=== PATIENT | male | born 1955 | race Caucasian/White ===

== ENCOUNTER 2016-09-03 04:30 | Inpatient (IN) | payer MEDICAID ==
[~2016-09-03] VITALS: Ht 172.7 cm; Wt 81.6 kg
[~2016-09-03 04:30] MED LIST: LIPITOR20 MG PO; LISINOPRIL10 M1 PO; NITROSTAT0.4 M1 PO; ZOCOR5 MG PO
--- NOTE | 2016-09-03 04:30 | NUR ---
61 [place] [address] [place]. Brought in by ambulance tO ED WITH c/o chest pain . PT STATES had chest pain since yesterday AM . DENIES N/V/D; SKIN IS Pale /cold/wet; AAOX4 WITH EVEN AND STEADY GAIT; LUNGS CLEAR BL; HR EVEN AND REGULAR; PT DENIES ANY fever,SOB, OR COUGH AT THIS TIME; PATIENT STATES PAIN OF 10/10 AT THIS TIME; VSS; PATIENT POSITIONED FOR COMFORT; HOB ELEVATED; BEDRAILS UP X2; BED DOWN. ER MD MADE AWARE OF PT STATUS.
--- NOTE | 2016-09-03 04:30 | NUR ---
0419- PT TORSTEN ALS. TAKEN TO BED 8
[2016-09-03 04:36] VITALS: BP 127/77
[2016-09-03] MEDS ORDERED: NACL 0.9% 1,000 ML IV ONE (05:15)
--- NOTE | 2016-09-03 05:33 | NUR ---
Dr. Gramajo evaluating patient at bedside.
[2016-09-03] MEDS ORDERED: NITROGLYCERIN 2% 1 GM PKT TP ONE (05:40)
[2016-09-03] MEDS ORDERED: MORPHINE SULFATE 4 MG/ML SYR IVP ONE (05:40)
--- NOTE | 2016-09-03 06:19 | NUR ---
Patient will be admitted to care of DR. CEBALLOS . Admited to TELEMETRY. Will go tO room 122. Belongings list completed. Report to AMY LOWE.
--- NOTE | 2016-09-03 06:30 | NUR ---
RECEIVED PT FROM ER PER MONSE WITH CC OF CHEST PAIN, AMBULATED TO BED WITH MINIMAL ASSIST, TOOK OFF SOAKED JEANS, SOCKS AND SHOES, PROVIDED WITH URINAL AND VOIDED FREELY, PUT ON TELEMETRY, MRSA NARES DONE, INITIAL VITAL SIGNS TAKEN, CALL LIGHT WITHIN REACH.
[2016-09-03] MEDS ORDERED: ONDANSETRON 4 MG/2 ML VIAL IVP PRN (06:40)
[2016-09-03] MEDS ORDERED: HYDROcodone/APAP 5/325 MG 1 TAB TAB PO PRN (06:40)
[2016-09-03] MEDS ORDERED: LORazepam 2 MG/ML VIAL IVP PRN (06:40)
[2016-09-03 07:00] VITALS: BP 121/79
--- NOTE | 2016-09-03 07:05 | NUR ---
PT SLEEPING, NO SIGNS OF DISTRESS, REPORT GIVEN TO SANJAY REYES FOR CONTINUITY OF CARE.
[2016-09-03] MEDS ORDERED: PNEUMOCOCCAL VACCINE 23 MCG/0.5 ML VIAL IMVAC SCH (09:40)
--- NOTE | 2016-09-03 09:56 | NUR ---
Jadon ELDRIDGE IS HERE TO SEE PATIENT.
--- NOTE | 2016-09-03 10:03 | NUR ---
PATIENT HAS BEEN SCREENED AND CATEGORIZED MODERATE NUTRITION RISK. PATIENT WILL BE SEEN WITHIN 3-5 DAYS OF ADMISSION. 09/05/16-09/07/[address]
[2016-09-03] MEDS ORDERED: ENOXAPARIN 80 MG/0.8 ML SYR SUBQ SCH ×2 (10:26→21:00)
--- NOTE | 2016-09-03 10:28 | NUR ---
PATIENT COMPLAINING OF NAUSEA. ZOFRAN IVP GIVEN WITH TEACHING. PATIENT TOLERATED WELL AND VERBALIZED UNDERSTANDING. NO SIGN OF DISTRESS NOTED AT THIS TIME. ALL NEEDS ARE MET. CALL LIGHT WITHIN REACH. WILL CONTINUE TO MONITOR.
--- NOTE | 2016-09-03 10:34 | NUR ---
DR CEBALLOS. Y AWARE OF PATIENT HAS BEEN SINUS TACHY OF 130-135.
[2016-09-03] MEDS: NACL 0.9% 1,000 ML IV SCH ×2 (10:42→20:28)
[2016-09-03 12:00] VITALS: BP 129/69
[2016-09-03] MEDS: MORPHINE SULFATE 2 MG/ML SYR IVP PRN ×2 (12:11→23:10)
--- NOTE | 2016-09-03 12:16 | NUR ---
PATIENT REQUESTED MEDICATION FOR BLE PAIN ACHING AND PRESSURE PAIN 10/10. MORPHINE IVP GIVEN. PATIENT TOLERATED WELL. NO SIGN OF DISTRESS NOTED. ALL NEEDS ARE MET. CALL LIGHT WITHIN REACH. WILL CONTINUE TO MONITOR.
[2016-09-03] MEDS: ACETAMINOPHEN 325 MG TAB PO PRN (12:29)
--- NOTE | 2016-09-03 14:35 | NUR ---
CALLED AND SPOKE WITH Jadon ELDRIDGE REGARDING PATIENT'S CRITICAL LAB VALUE TROPONIN [phone]. STATED TO CONTINUE TO MONITOR PATIENT. TELEPHONE ORDER FOR TROPONIN IN AM 09/04/16, AND PATIENT TO BE TRANSFERRED TO [facility] FOR ANGIOGRAM.
[2016-09-03] MEDS: NITROGLYCERIN 0.4 MG TAB SL PRN ×5 (15:04→19:42)
--- NOTE | 2016-09-03 15:05 | NUR ---
PATIENT REPORTED HAVING PRESSURE CHEST PAIN 04/18. NITROSTAT PO GIVEN. O2 3L VIA NASAL CANNULA GIVEN. HEAD OF BED ELEVATED. VS OBTAINED. PATIENT STILL HAVING MILD FEVER AT 100.2. COOLING MEASURE STILL IN PLACE.
[2016-09-03 15:06] VITALS: BP 135/85
--- NOTE | 2016-09-03 15:56 | NUR ---
NITROSTAT PO GIVEN FOR CHEST PAIN. HEAD OF BED ELEVATED. O2 3L VIA NASAL CANNULA GIVEN. WILL CONTINUE TO MONITOR.
[2016-09-03 16:00] VITALS: BP 143/87
--- NOTE | 2016-09-03 16:01 | NUR ---
PATIENT STATED CHEST IS GETTING BETTER BUT THE PRESSURE STILL THERE 02/15. ANOTHER NITROSTAT PO GIVEN. WILL CONTINUE TO MONITOR.
--- NOTE | 2016-09-03 16:05 | NUR ---
CM NOTE PATIENT TO BE PICKED UP BY [facility] VIA [facility] MONSE GOING TO [facility]. TO BE PICKED UP AT 0700 FOR CHECK IN AT 0800. # FOR REPORT: [phone]. PLEASE CALL AFTER 0630.
--- NOTE | 2016-09-03 16:08 | NUR ---
PATIENT STATED CHEST PRESSURE 5/10 STILL THERE. 3RD NITROSTAT PO GIVEN. WILL CONTINUE TO MONITOR.
--- NOTE | 2016-09-03 16:12 | NUR ---
PATIENT STATED CHEST WENT AWAY FOR NOW. NO SIGN OF DISTRESS NOTED. WILL CONTINUE TO MONITOR.
--- NOTE | 2016-09-03 16:27 | NUR ---
SPOKE TO DR. Jadon CEBALLOS AND HE AWARE PATIENT CHEST PAIN WENT AWAY AFTER 3 DOSES OF NITROSTAT 0.4MG. RECEIVED TELEPHONE ORDERS FOR NITRO-DUR 0.2MG ONE DOSE NOW. WILL FOLLOW THROUGH MD ORDERS.
[2016-09-03] MEDS ORDERED: NITROGLYCERIN 0.2 MG/HR PATCH TD SCH (17:05)
--- NOTE | 2016-09-03 17:39 | NUR ---
INSTRUCTED PATIENT TO DRINKING MORE WATER AND HOLD PEE FOR ULTRASOUND OF KIDNEY. PATIENT VERBALIZED UNDERSTANDING.
--- NOTE | 2016-09-03 19:15 | NUR ---
RECEIVED REPORT FROM DAY RN AT BEDSIDE. PATIENT IS AAO X4. PATIENT HAS IV TO RAC #20 PATENT INTACT, ASYMPTOMATIC. PATIENT IS ON 02 3L NC NO SOB NOTED. PATIENT HAS RASH TO GROIN AREA. PATIENT STATED HE HAS CP, NITROSTAT TO BE ADMINISTERED. DISCUSSED PLAN OF CARE WITH PATIENT, PATIENT VERBALIZED UNDERSTANDING. CALL LIGHT WITHIN REACH, WILL CONTINUE TO MONITOR.
--- NOTE | 2016-09-03 19:22 | NUR ---
ENDORSED PATIENT CURRENT PLAN OF CARE TO NIGHT NURSE AMY PIZARRO. PATIENT RESTING WELL IN BED WITH NO SIGN OF DISTRESS NOTED. DENIED ANY CHEST PAIN.
--- NOTE | 2016-09-03 19:35 | NUR ---
PT STATING HE HAS CHEST PAIN, ADMINISTERED NITRO SL. WILL CONTINUE TO MONITOR FOR 15 MIN.
--- NOTE | 2016-09-03 19:47 | NUR ---
ADMINISTERED 3RD NITRO SL TABLET, PATIENT C/O CHEST PAIN, IF NO RELIEF OF CHEST PAIN WILL NOTIFY MD.
--- NOTE | 2016-09-03 19:51 | NUR ---
PATIENT STATED PAIN WENT AWAY AFTER ADMINISTRATION OF 3RD NITROSTAT. NO DISTRESS NOTED, CALL LIGHT WITHIN REACH. WILL CONTINUE TO MONITOR. REMINDED PATIENT TO CALL SOON PT FEELS CHEST PAIN.
[2016-09-03 20:00] VITALS: BP 122/68
--- NOTE | 2016-09-03 20:40 | NUR ---
ADMINISTERED PAIN MEDS, PATIENT TOLERATED WELL. NO SOB OR SIGN OF DISTRESS, PATIENT STATES HE HAS NO CHEST PAIN AT THIS TIME BUT C/O PAIN IN LEGS, ADMINISTERED NORCO PER MD ORDER, CALL LIGHT WITHIN REACH. WILL CONTINUE TO MONITOR.
[2016-09-03] MEDS ORDERED: METOPROLOL 25 MG TAB PO SCH ×2 (21:00)
[2016-09-03] MEDS ORDERED: LOVENOX 1MG/KG Q12H SUBQ SCH (21:00)
--- NOTE | 2016-09-03 21:40 | NUR ---
PATIENT SLEEPING, NO DISTRESS NOTED. CALL LIGHT WITHIN REACH. WILL CONTINUE TO MONITOR.
--- NOTE | 2016-09-03 22:30 | NUR ---
RECEIVED CALL FOR CRITICAL LAB OF TROPONIN [phone], PAGED DR CLINT CEBALLOS, AWAITING CALL BACK.
--- NOTE | 2016-09-03 22:48 | NUR ---
NO CALL BACK FROM DR CLINT CEBALLOS, PAGED AGAIN, WILL AWAIT CALL BACK.
--- NOTE | 2016-09-03 23:00 | NUR ---
RECEIVED CALL BACK FROM CLINT CEBALLOS, SAID HE WOULD NOTIFY CARDIO TECH. CALLED [employer] TO MAKE SURE INFORMATION WAS PASSED ALONG, Hadley CEBALLOS GAVE NO ADDITIONAL ORDERS. PATIENT IS TO BE TRANSFERRED TP [facility] IN THE AM FOR ANGIOGRAM.
[2016-09-04] VITALS: BP 145/63
[2016-09-04] MEDS: NITROGLYCERIN 0.4 MG TAB SL PRN (01:33)
--- NOTE | 2016-09-04 01:34 | NUR ---
PATIENT C/O CHEST PAIN. STATES PAIN IS UNCOMFORTABLE, ASKED FOR NITRO TABLET. ADMINISTERED NITRO STAT WILL CONTINUE TO MONITOR.
--- NOTE | 2016-09-04 01:42 | NUR ---
ADMINISTERED NITROSTAT X2 PATIENT STATES HIS PAIN HAS GONE AWAY. CALL LIGHT WITHIN REACH WILL CONTINUE TO MONITOR.
--- NOTE | 2016-09-04 02:30 | NUR ---
PATIENT SLEEPING, NO SOB OR SIGN OF DISTRESS NOTED, CALL LIGHT WITHIN REACH. WILL CONTINUE TO MONITOR.
[2016-09-04 04:00] VITALS: BP 123/70
[2016-09-04] MEDS: ACETAMINOPHEN 325 MG TAB PO PRN (04:27)
--- NOTE | 2016-09-04 04:44 | NUR ---
PATIENT C/O MILD HEADACHE. ASKED FOR TYLENOL. ADMINISTERED TYLENOL PER MD ORDER. PATIENT DENIES CHEST PAIN AT THIS TIME. CALL LIGHT WITHIN REACH. WILL CONTINUE TO MONITOR.
[2016-09-04] MEDS: NACL 0.9% 1,000 ML IV SCH (06:25)
--- NOTE | 2016-09-04 06:34 | NUR ---
ATTEMPTED TO CALL [facility] TO GIVE REPORT. NO ANSWER, WILL RETRY
--- NOTE | 2016-09-04 06:43 | NUR ---
CALLED [facility], SPOKE TO JACQUI, GAVE REPORT. PATIENT IS TO BE PICKED UP AT 0700 VIA [facility].
--- NOTE | 2016-09-04 07:00 | NUR ---
[facility] HERE TO LEAD MECHANIC PATIENT TO TRANSFER TO [facility] FOR ANGIOGRAM, TELE BOX REMOVED FROM PATIENT, PATIENT BELONGINGS IN POSSESSION. PATIENT IN STABLE CONDITION.
[2016-09-04] MEDS ORDERED: ECOTRIN 81 MG TABEC PO SCH (09:00)
[2016-09-04] MEDS ORDERED: LOSARTAN 25 MG TAB PO SCH (09:00)
[2016-09-05] MEDS ORDERED: INFLUENZA VIRUS VACCINE QUAD 0.5 ML SYR IMVAC SCH (08:00)
[2016-09-05] MEDS ORDERED: LEVOFLOXACIN 250 MG TAB PO SCH (09:00)
== END 2016-09-04 07:00 | disposition short-term general hospital (02) | DRG 198 ==
LOC: MED 04:30 → MTU 06:07 → UNDOADMIN 06:07
PROVIDERS: ADMIT Preventive Medicine Preventive Medicine/Occupational Environmental Medicine; ATTEND Preventive Medicine Preventive Medicine/Occupational Environmental Medicine
DX: I25.10 Atherosclerotic heart disease of native coronary artery without angina pectoris (principal); N17.9 Acute kidney failure, unspecified; J44.9 Chronic obstructive pulmonary disease, unspecified; I10 Essential (primary) hypertension; D72.829 Elevated white blood cell count, unspecified; R31.9 Hematuria, unspecified; R74.0 Nonspecific elevation of levels of transaminase and lactic acid dehydrogenase [LDH]; F11.10 Opioid abuse, uncomplicated; F17.210 Nicotine dependence, cigarettes, uncomplicated; Z95.1 Presence of aortocoronary bypass graft; Z88.0 Allergy status to penicillin; Z79.899 Other long term (current) drug therapy

== ENCOUNTER 2016-10-12 12:33 | Emergency (ER) | payer MEDICAID ==
[~2016-10-12] VITALS: Ht 172.7 cm; Wt 83.9 kg
--- NOTE | 2016-10-12 12:41 | NUR ---
PT BIBA TO BED 2
[2016-10-12 12:42] VITALS: BP 179/106
--- NOTE | 2016-10-12 12:42 | NUR ---
Felecia pino in [facility] - 10/12/16 at 1354 by DELICIA PT BIBA TO BED 2 AT THIS TIME.
--- NOTE | 2016-10-12 12:44 | NUR ---
61M BIBA C/O FALL X THIS MORNING; PER EMS, PT ETOH, SITTING ON BENCH OUTSIDE BAGEL SHOP, FELL CAUSING LACERATION TO NOSE; PT DENIES LOC AT THIS TIME; SLIGHT BLEEDING NOTED TO NOSE AT THIS TIME; PT A&OX2 TO SELF/SITUATION BUT NOT TIME/PLACE; PERRL; BL LUNG SOUNDS CLEAR, RR EVEN/UNLABORED; PT C/O NAUSEA; STATES VOMITED X 2 EPISODES TODAY; ABDOMEN SOFT, NON-TENDER, ACTIVE BOWEL SOUNDS X 4 QUADRANTS; PT AMBULATES W/ CANE; PT RESTING IN BED W/ HOB ELEVATED AND IN LOWEST POSITION; POSITIONED FOR COMFORT; ER MD MADE AWARE OF STATUS. WILL CONTINUE TO MONITOR.
[2016-10-12] MEDS ORDERED: KETOROLAC 60 MG/2 ML VIAL IM ONE (13:05)
--- NOTE | 2016-10-12 13:53 | NUR ---
FOOD TRAY PROVIDED TO PT AT THIS TIME. WILL CONTINUE TO MONITOR.
--- NOTE | 2016-10-12 14:27 | NUR ---
ER MD DR. CARRILLO EVALUATING PT AT BEDSIDE.
[2016-10-12] MEDS ORDERED: MORPHINE SULFATE 4 MG/ML SYR IM ONE (14:35)
[2016-10-12 15:41] VITALS: BP 152/90
--- NOTE | 2016-10-12 15:41 | NUR ---
Patient discharged STABLE. Written and verbal after care instructions given and explained. Patient alert, oriented and verbalized understanding of instructions. Ambulatory with steady gait. All questions addressed prior to discharge. ID band removed. Patient advised to follow up with PMD. Rx of NORCO 5MG-325MG TAB & MOTRIN 800MG TAB given. Patient educated on indication of medication including possible reaction and side effects. Opportunity to ask questions provided and answered. Addendum: 10/12/16 at 1543 by MED CARISA CARRILLO AWARE OF BP 152/90; PT DENIES HEADACHE, DIZZINESS OR S/S OF HTN AT THIS TIME. ADVISED TO FOLLOW UP WITH PRIMARY CARE PHYSICIAN.
== END 2016-10-12 15:41 | disposition home or self-care (01) ==
LOC: MED 12:39
DX: S01.21XA Laceration without foreign body of nose, initial encounter (principal); I10 Essential (primary) hypertension; Z88.0 Allergy status to penicillin; Z95.1 Presence of aortocoronary bypass graft; F17.200 Nicotine dependence, unspecified, uncomplicated; W08.XXXA Fall from other furniture, initial encounter; Y93.89 Activity, other specified; Y92.89 Other specified places as the place of occurrence of the external cause; Y99.8 Other external cause status
CPT/HCPCS: 12011; 96372; 99284; J1885; J2270

== ENCOUNTER 2017-06-25 13:46 | Emergency (ER) | payer MEDICAID, OTHER ==
[~2017-06-25] VITALS: Ht 172.7 cm; Wt 81.6 kg
[~2017-06-25 13:46] MED LIST changes: -LIPITOR20 MG PO; -LISINOPRIL10 M1 PO; +NITR0.4T2 PO; -NITROSTAT0.4 M1 PO; -ZOCOR5 MG PO
[2017-06-25 13:58] VITALS: BP 101/52
--- NOTE | 2017-06-25 14:14 | NUR ---
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 NAD. ER MD AWARE OF PT STATUS. WILL CONTINUE TO MONITOR.
--- NOTE | 2017-06-25 14:36 | NUR ---
PT TO CT VIA WHEELCHAIR ACCOMPANIED BY DOCUMENTATION CONSULTANT
--- NOTE | 2017-06-25 14:51 | NUR ---
PT RETURNED FROM CT VIA W/C ACCOMPANIED BY PRINCIPAL DATABASE DEVELOPER
[2017-06-25 16:25] VITALS: BP 144/70
--- NOTE | 2017-06-25 16:25 | NUR ---
Patient discharged with v/s stable. Written and verbal after care instructions given and explained. Patient verbalized understanding. Ambulatory with steady gait. All questions addressed prior to discharge. Advised to follow up with PMD. Patient given community/[facility] packet.
== END 2017-06-25 16:25 | disposition home or self-care (01) ==
LOC: MED 13:46
DX: S00.211A Abrasion of right eyelid and periocular area, initial encounter (principal); S00.81XA Abrasion of other part of head, initial encounter; I10 Essential (primary) hypertension; Z88.0 Allergy status to penicillin; W01.0XXA Fall on same level from slipping, tripping and stumbling without subsequent striking against object, initial encounter; Y93.01 Activity, walking, marching and hiking; Y92.89 Other specified places as the place of occurrence of the external cause; Y99.8 Other external cause status
CPT/HCPCS: 70450; 72125; 82948; 99284